=== PATIENT | female | born 1990 | race Two or more races ===

== ENCOUNTER 2024-03-17 09:30 | Inpatient (IN) | payer OTHER ==
[~2024-03-17] VITALS: Ht 162.6 cm; Wt 2.7 kg
[2024-03-17 08:15] VITALS: BP 126/81
[2024-03-17] MEDS ORDERED: RINGERS SOLUTION,LACTATED 1,000 ML IV SCH (10:45)
[2024-03-17] MEDS ORDERED: OXYTOCIN 500 ML IV SCH (10:45)
[2024-03-17 12:43] LABS: HEMATOCRIT 37.5 % (36.0-45.00); HEMOGLOBIN 13.2 g/dL (12.0-15.00); MEAN CELL VOLUME 84.7 fL (80.00-100.00); MEAN CORPUSCULAR HEMOGLOBIN 29.8 pg (27.00-32.0); MEAN CORPUSCULAR HGB CONC 35.2 g/dl (32.0-36.0); PLATELET COUNT 237 K/uL (150-450); RED BLOOD COUNT 4.43 M/uL (4.00-6.00); RED CELL DISTRIBUTION WIDTH 14.3 % (11.5-14.5)
[2024-03-17 12:58] LABS: INR 0.97; PARTIAL THROMBOPLASTIN TIME 26.2 SECONDS (22.0-34.0); PROTHROMBIN TIME 10.6 SECONDS (9.0-11.5)
[2024-03-17 13:01] LABS: ALBUMIN 3.2 gm/dL (3.4-5.0); BILIRUBIN TOTAL 0.38 mg/dL (0.3-1.2); CALCIUM 9.4 mg/dL (8.5-10.1); CREATININE SERUM 0.69 mg/dL (0.55-1.02); GFR 97.98; GLOBULINA 3.5 G/DL (2.4-3.5); POTASSIUM 4.76 mEq/L (3.5-5.1); TOTAL PROTEIN 6.7 gm/dL (6.4-8.2)
[2024-03-17] MEDS ORDERED: OXYTOCIN 500 ML IV ONE (13:30)
[2024-03-17 15:15] VITALS: BP 122/64
[2024-03-17] MEDS ORDERED: ZOLOFT50 MG PO (17:18)
[2024-03-17] MEDS ORDERED: PRENATAL CAPLE1 EAC1 PO (17:19)
[2024-03-17] MEDS ORDERED: CEFAZOLIN SODIUM 1,000 MG VIAL IV ONE (18:30)
[2024-03-17] MEDS ORDERED: OXYTOCIN 1,000 ML IV SCH (20:30)
[2024-03-17] MEDS ORDERED: MORPHINE SULFATE 4 MG/ML CARTRIDGE IV PRN (20:30)
[2024-03-17] MEDS ORDERED: MORPHINE SULFATE 4 MG/ML VIAL IV ONE ×2 (21:20→21:50)
[2024-03-17 22:45] VITALS: BP 124/73
[2024-03-17] MEDS ORDERED: MEPERIDINE HCL/PF 50 MG/ML VIAL IM PRN (23:00)
[2024-03-17] MEDS ORDERED: PROMETHAZINE HCL 50 MG/ML AMPUL IM PRN (23:00)
[2024-03-17] MEDS ORDERED: IBUprofen 800 MG TABLET PO PRN (23:00)
[2024-03-18 01:25] VITALS: BP 127/80
[2024-03-18 08:06] VITALS: BP 107/64
[2024-03-18] MEDS ORDERED: IBUprofen 400 MG TABLET PO SCH (09:00)
[2024-03-18 10:23] LABS: HEMATOCRIT 36.6 % (36.0-45.00); HEMOGLOBIN 12.4 g/dL (12.0-15.00); MEAN CELL VOLUME 85.8 fL (80.00-100.00); MEAN CORPUSCULAR HGB CONC 33.8 g/dl (32.0-36.0); PLATELET COUNT 236 K/uL (150-450); RED BLOOD COUNT 4.27 M/uL (4.00-6.00); RED CELL DISTRIBUTION WIDTH 14.1 % (11.5-14.5)
[2024-03-18 16:13] VITALS: BP 126/78
[2024-03-19] VITALS: BP 105/66
[2024-03-19] MEDS ORDERED: OxyCODONE HCL 5 MG TABLET (ROXICODONE) PO PRN (06:00)
[2024-03-19 08:32] VITALS: BP 117/62
[2024-03-19] MEDS ORDERED: IBUprofen 400 MG TABLET PO SCH (09:00)
== END 2024-03-19 13:28 | disposition home or self-care (01) | DRG 788 ==
LOC: OBS/DEL 09:30 → LDR 10:57 → OB/GYN 19:35
PROVIDERS: ADMIT Obstetrics & Gynecology; ATTEND Obstetrics & Gynecology
PROC: 4A1HXCZ Monitoring of Products of Conception, Cardiac Rate, External Approach (ICD-10-PCS; 2024-03-17)
PROC: 10D00Z1 Extraction of Products of Conception, Low, Open Approach (ICD-10-PCS; principal; 2024-03-17 17:45)
DX: O33.8 Maternal care for disproportion of other origin (principal); O69.81X0 Labor and delivery complicated by cord around neck, without compression, not applicable or unspecified; Z3A.37 37 weeks gestation of pregnancy; Z37.0 Single live birth; Z20.822 Contact with and (suspected) exposure to COVID-19